=== PATIENT | male | born 1985 | race Asian ===

== ENCOUNTER 2018-07-24 22:42 | Emergency (ER) | payer OTHER ==
[2018-07-24 22:54] VITALS: BMI 23.1
--- NOTE | 2018-07-24 22:58 | PDOC ---
History of Present Illness - General Chief Complaint: Respiratory Stated Complaint: FEVER Time Seen by Provider: 07/24/18 22:58 History Source: Patient Exam Limitations: No Limitations - History of Present Illness Initial Comments: Pt is a 33 yo M, with PMH of asthma (? - pt uses albuterol MDI "with allergies" ) and lipomas, who is presenting with complaints of cough productive of green sputum x5 days, fever, and generalized body aches. He has had a fever at home ( Tmax 103), and has been taking Tylenol (650 mg PO) about every 6 hours with minimal relief. Pt states he has not been tolerating PO food and fluid as much as normal. Pt has had nausea from coughing, but no vomiting. Pt states his infant is sick at home "with a cold, but no cough". Pt is from [place] and came to the in 2015. He visited [place] in March 2018, with no known sick contacts. Pt denies any headache, vision changes, syncope, chest pain, palpitations, SOB, vomiting, abdominal pain, urinary symptoms, diarrhea/ constipation, or leg swelling. Social: Pt denies any cigarette, alcohol, or drug use. Sick infant at home "with a cold". Went to [place], no known sick contacts. Surgical: lipoma removals. Family: Father - ACS/HTN, OR aged 50s. 07/25/18 00:32 Past History - Travel Traveled outside of the country in the last 30 days: No Close contact w/someone who was outside of country & ill: No - Past Medical History Allergies/Adverse Reactions: Allergies Allergy/AdvReac Type Severity Reaction Status Date / Time No Known Allergies Allergy Verified 07/24/18 22:49 Home Medications: Ambulatory Orders Azithromycin [Zithromax Tri-John (3 DAYS) -] 500 mg PO DAILY #3 tablet 07/25/18 Benzonatate [Tessalon Pearls -] 100 mg PO TID PRN #21 capsule 07/25/18 Asthma: Yes Cardiac Disorders: No Hx Myocardial Infarction: No COPD: No Diabetes: No HTN: No Hypercholesterolemia: No - Surgical History Lung Surgery: No Other Surgical History: lipoma removal 07/25/18 00:33 - Suicide/Smoking/Psychosocial Hx Smoking History: Never smoked Have you smoked in the past 12 months: No Information on smoking cessation initiated: No Hx Alcohol Use: No Drug/Substance Use Hx: No Review of Systems - Review of Systems Able to Perform ROS?: Yes Is the patient limited [place]ish proficient: No Constitutional: Yes: Chills, Diaphoresis, Fever, Loss of Appetite, Malaise, Weight Stable. No: Night Sweats, Weakness HEENTM: No: Recent change in vision, Nose Congestion, Nose Bleeding, Hearing Loss, Throat Pain, Throat Swelling, Difficulty Swallowing Respiratory: Yes: See HPI, Cough, Productive cough. No: Orthopnea, Shortness of Breath, SOB with Exertion, SOB at Rest, Stridor, Wheezing, Hemoptysis Cardiac (ROS): Yes: Chest Tightness. No: Chest Pain, Edema, Irregular Heart Rate, Lightheadedness, Palpitations, Syncope ABD/GI: Yes: Poor Appetite, Poor Fluid Intake. No: Constipated, Diarrhea, Nausea, Vomiting, Abdominal cramping : No: Burning, Dysuria, Pain, Urgency Musculoskeletal: No: Back Pain, Joint Pain Integumentary: Yes: Sweating. No: Rash Neurological: No: Headache, Seizure, Weakness, Unsteady Gait, Ataxia, Dizziness Psychiatric: No: Sleep Pattern Change, Change in Appetite Endocrine: No: Increased Urine, Change in Weight Hematologic/Lymphatic: No: Anemia, Blood Clots, Easy Bleeding, Easy Bruising All Other Systems: Reviewed and Negative *Physical Exam - Vital Signs Last Vital Signs Temp Pulse Resp BP Pulse Ox 102.4 F H 124 H 16 148/64 95 07/24/18 22:47 07/24/18 22:47 07/24/18 22:47 07/24/18 22:47 07/24/18 22:47 - Physical Exam General Appearance: Yes: Nourished, Appropriately Dressed. No: Apparent Distress HEENT: positive: EOMI, CHAS, Normal ENT Inspection, Normal Voice, Symmetrical, TMs Normal, Pharynx Normal, Hearing Grossly Normal. negative: Scleral Icterus ( R), Scleral Icterus (L), Muffled/Hoarse voice, Pharyngeal Erythema, Tonsillar Exudate, Tonsillar Erythema, Nasal Congestion, Rhinorrhea, Sinus Tenderness, TM Bulging, TM Dull, TM Erythema, Excessive drooling Neck: positive: Trachea midline, Normal Thyroid, Supple. negative: Tender, Rigid, Stridor, Lymphadenopathy (R), Lymphadenopathy (L), Rigidity Respiratory/Chest: positive: Lungs Clear, Normal Breath Sounds. negative: Chest Tender, Respiratory Distress, Accessory Muscle Use, Decreased Breath Sounds, Crackles, Wheezing Cardiovascular: positive: Regular Rhythm, S1, S2, Tachycardia. negative: Regular Rate, Edema, JVD, Murmur Vascular Pulses: Carotid (R): 4+, Carotid (L): 4+ Gastrointestinal/Abdominal: positive: Normal Bowel Sounds, Flat, Soft. negative : Tender, Organomegaly, Pulsatile Mass, Distended, Guarding, Rebound Rectal Exam: positive: deferred Lymphatic: negative: Adenopathy, Tenderness Musculoskeletal: positive: Normal Inspection. negative: CVA Tenderness Extremity: positive: Normal Capillary Refill, Normal Inspection, Normal Range of Motion, Pelvis Stable. negative: Tender Integumentary: positive: Normal Color, Warm, Diaphoresis. negative: Dry, Jaundice, Rash Neurologic: positive: director of infection prevention II-XII NML intact, Fully Oriented, Alert, Normal Mood/ Affect, Normal Response, Motor Strength 5/5 Moderate Sedation - Procedure Monitoring Vital Signs: Procedure Monitoring Vital Signs Temperature 102.4 F H 07/24/18 22:47 Pulse Rate 124 H 07/24/18 22:47 Respiratory Rate 16 07/24/18 22:47 Blood Pressure 148/64 07/24/18 22:47 O2 Sat by Pulse Oximetry (%) 95 07/24/18 22:47 ED Treatment Course - LABORATORY CBC & Chemistry Diagram: 07/25/18 00:10 07/25/18 00:10 Medical Decision Making - Medical Decision Making Pt was seen at bedside, also will be seen by attending Dr. Peralta. Pt presenting with complaints of cough productive of green sputum x5 days, fever, and generalized body aches. He has had a fever at home (Tmax 103), and has been taking Tylenol (650 mg PO) about every 6 hours with minimal relief. Pt states he has not been tolerating PO food and fluid as much as normal. Pt has had nausea from coughing, but no vomiting. Pt states his infant is sick at home "with a cold, but no cough". Pt is from [place] and came to the in 2015. He visited [place] in March 2018, with no known sick contacts. Pt denies any headache, vision changes, syncope, chest pain, palpitations, SOB, vomiting, abdominal pain, urinary symptoms, diarrhea/constipation, or leg swelling. Pt febrile and tachycardic, but able to lie comfortably, looks stable. Pt diaphoretic and feels warm to touch. PE showed pt alert and oriented. director of infection prevention generally intact, muscular strength and sensation intact. Oral mucosa dry, pharynx without erythema or exudate. No LAD. Clear heart and lung sounds, no wheezing, no focal lung deficits, no JVD, b/l pedal edema, or heart murmur. No abdominal or CVA tenderness to palpation, no rebound, no guarding. Considering viral URI/influenza vs pneumonia vs bronchitis vs undiagnosed asthma /exacerbation. Ordered work-up including CBC, CMP, influenza, and chest x-ray. Provided albuterol nebulizer, 1 L IV NS, and 650 mg PO tylenol for improvement of fever, dehydration and chest tightness. Will continue to reassess pt and monitor for symptomatic improvement. 07/25/18 00:03 Influenza negative. Will provide 1 g IV ceftriaxone and 500 mg PO azithromycin to cover for likely pneumonia. 07/25/18 00:16 CBC: WNL, no increased WBCs. 07/25/18 00:43 CMP generally WNL. Pending chest x-ray. 07/25/18 01:19 Chest x-ray showed increased infiltrates over the RLL. Repeat vitals: T 99.6, HR 110 (tachy after albuterol treatments), saturating 100 % on RA. Pt states he is feeling much better. Will send tessalon perles and 500 mg PO azithromycin Qday, x3 days to pharmacy. Pt can be discharged to home with follow-up. Pt advised to follow-up with PCP in 1-2 days. Strict return precautions provided with pt understanding. 07/25/18 02:35 *DC/Admit/Observation/Transfer Diagnosis at time of Disposition: Pneumonia Qualifiers: Pneumonia type: due to unspecified organism Laterality: right Lung location: lower lobe of lung Qualified Code(s): J18.1 - Lobar pneumonia, unspecified organism - Discharge Dispostion Disposition: HOME Condition at time of disposition: Improved Decision to Admit order: No - Prescriptions Prescriptions: Azithromycin [Zithromax Tri-John (3 DAYS) -] 500 mg PO DAILY #3 tablet Benzonatate [Tessalon Pearls -] 100 mg PO TID PRN #21 capsule PRN Reason: Cough - Referrals Referrals: Marta Costa MD [Primary Care Provider] - - Patient Instructions Printed Discharge Instructions: DI for Pneumonia -- Adult Additional Instructions: You were seen in the ER today for cough and fever. The results of your labs and imaging today showed a pneumonia. Please follow-up with your primary care doctor within 1-2 days to discuss your visit and make sure your symptoms have improved. Please return to the ER if you have any worsening pain or shortness of breath, worsening fevers or chills that does not improve with tylenol or motrin, loss of consciousness, inability to tolerate food or fluids, or any other concerns. I have sent an antibiotic (500 mg once per day, for three days) and tessalon perles to your pharmacy for infection and cough. You can continue to take ibuprofen and tylenol for pain and fever. Please continue to drink plenty of fluids at home. - Post Discharge Activity
[2018-07-24] MEDS ORDERED: ACETAMINOPHEN 325 MG TABLET (FP) PO ONE (22:59)
[2018-07-24] MEDS ORDERED: ACETAMINOPHEN 325 MG TABLET (FP) ONE (23:29)
[2018-07-24] MEDS ORDERED: ALBUTEROL SO4 0.083% IH SOL 2.5 MG/3 ML VIAL.NEB. NEB ONE (23:54)
[2018-07-24] MEDS ORDERED: SODIUM CHLORIDE 1,000 ML IV STA (23:54)
[2018-07-25] MEDS ORDERED: ALBUTEROL SO4 0.083% IH SOL 2.5 MG/3 ML VIAL.NEB. NEB ONE (00:13)
[2018-07-25] MEDS ORDERED: CEFTRIAXONE 1,000 MG in DEXTROSE 5%-WATER - 50 ML IVPB ONE (00:20)
[2018-07-25] MEDS ORDERED: AZITHROMYCIN 250 MG TABLET PO ONE (00:22)
[2018-07-25 00:30] LABS: BASO % 0.5 % (0-2.0); EOS % 1.4 % (0-4.5); HEMATOCRIT 36.1 % (35.4-49); HEMOGLOBIN 12.9 GM/dL (11.7-16.9); LYMPH % 10.5 % (8-40); MCH 30.8 pg (25.7-33.7); MCHC 35.7 g/dl (32.0-35.9); MEAN CELL VOLUME 86.4 fl (80-96); MONO % 8.1 % (3.8-10.2); NEUT % 79.5 % (42.8-82.8); PLATELET COUNT 178 K/MM3 (134-434); RBC 4.18 M/mm3 (4.00-5.60); RDW 12.6 % (11.9-15.9); WHITE BLOOD COUNT 5.9 K/mm3 (4.0-10.0)
[2018-07-25] MEDS ORDERED: AZITHROMYCIN 250 MG TABLET ONE (00:53)
[2018-07-25] MEDS ORDERED: CEFTRIAXONE 1 GM/50 ML BAG ONE (00:53)
--- NOTE | 2018-07-25 00:55 | PDOC ---
Attending Attestation - HPI HPI: 07/25/18 00:58 The patient is a 33 year old male with a significant past medical history of asthma (induced by allergies) who presents to the emergency department with a cough for 5 days. The patient reports that his cough is productive with green sputum. He reports some associated fever(103), body aches, chills and nausea. The patient states that what brought his in tonight was some chest tightness that he began to experience with his symptoms. He denies any vomiting, or diarrhea. He does endorse recent travel to [place] 4 months ago. He denies any other symptoms or complaints. - Physicial Exam PE: 07/25/18 00:58 GENERAL: (+)warm to touch. Awake, alert, and fully oriented, in no acute distress HEAD: No signs of trauma EYES: PERRLA, EOMI, sclera anicteric, conjunctiva clear ENT: Auricles normal inspection, hearing grossly normal, nares patent, oropharynx clear without exudates. Moist mucosa NECK: Normal ROM, supple, no lymphadenopathy, JVD, or masses LUNGS: Breath sounds equal, clear to auscultation bilaterally. No wheezes, and no crackles HEART:(+)tachy. Regular rhythm, normal S1 and S2, no murmurs, rubs or gallops ABDOMEN: Soft, nontender, normoactive bowel sounds. No guarding, no rebound. No masses EXTREMITIES: Normal range of motion, no edema. No clubbing or cyanosis. No cords, erythema, or tenderness NEUROLOGICAL: Cranial nerves II through XII grossly intact. Normal speech, normal gait SKIN: Warm, Dry, normal turgor, no rashes or lesions noted. Documentation prepared by Sona Oneil, acting as medical photographer for Monica Peralta MD. <Sona Oneil - Last Filed: 07/25/18 00:58> - Resident Resident Name: Joya Garcia - ED Attending Attestation I have performed the following: I have examined & evaluated the patient, The case was reviewed & discussed with the resident, I agree w/resident's findings & plan - Medical Decision Making 07/25/18 03:43 Pt's fever is down. He was hydrated. He is no longer tachycardic -rate 100 with duoneb in progress. He was treated with ceftriaxone and zithromax. He smokes 1 cig per week. However, 2nd hand smoke from the who smokes much more. We discussed the need to stop smoking. Pt will be sent home with a [id number] tri pack, and he was advised to return for worsening SOB or fever. He will be given a work note for of till . Stable for d/c home. 07/25/18 03:46 Right sided pneumonia on CXR <Monica Peralta - Last Filed: 07/25/18 03:46>
[2018-07-25 00:59] LABS: ALBUMIN 3.4 g/dl (3.4-5.0); ALK PHOS 48 U/L (45-117); ANION GAP 7 MMOL/L (8-16); BILIRUBIN,TOTAL 0.8 mg/dL (0.2-1); BLOOD UREA NITROGEN 17 mg/dL (7-18); CALCIUM 8.2 mg/dL (8.5-10.1); CHLORIDE 102 mmol/L (98-107); CO2 27 mmol/L (21-32); CREATININE 0.9 mg/dL (0.55-1.3); GLUCOSE,RANDOM 129 mg/dL (74-106); POTASSIUM 3.5 mmol/L (3.5-5.1); SGOT/AST 12 U/L (15-37); SGPT/ALT 13 U/L (13-61); SODIUM 135 mmol/L (136-145); TOT PROT 6.4 g/dl (6.4-8.2)
[2018-07-25] MEDS ORDERED: IBUPROFEN 600 MG TABLET (FP) PO ONE ×2 (02:39→02:42)
[2018-07-25 02:41] VITALS: BP 115/77; PULSE 110; TEMP 99.6
== END 2018-07-25 03:37 | disposition home or self-care (01) ==
LOC: JER 22:42
PROC: 3E0F7GC Introduction of Other Therapeutic Substance into Respiratory Tract, Via Natural or Artificial Opening (ICD-10-PCS; principal; 2018-07-24)
PROC: 3E03329 Introduction of Other Anti-infective into Peripheral Vein, Percutaneous Approach (ICD-10-PCS; 2018-07-24)
DX: J18.1 Lobar pneumonia, unspecified organism (principal)
CPT/HCPCS: 36415; 71046-TC-FY; 80053; 85025; 87804; 94640; 96361; 96365; 99282-25; J7030